=== PATIENT | male | born 1985 ===

== ENCOUNTER → 2025-10-05 18:54 | Outpatient (CLI) | payer BC, SELFPAY ==
--- NOTE | 2025-10-05 20:21 | DI.RAD_ITS ---
Exam(s) XR LUMBAR SPINE COMPLETE EXAM: XR LUMBAR SPINE COMPLETE CLINICAL HISTORY: Strain of Lumbar region ICD-10: S39.012A. TECHNIQUE: 2D digital imaging was performed. COMPARISON: No exams were available for comparison FINDINGS: Five views No evidence of fracture, listhesis, nor pars interarticularis defects. There is minimal disc space narrowing at L5-S1 level. Other disc spaces exhibit normal height. Bone density normal. No osseous lesions. Facet joints appear unremarkable. Bone density is normal and there are no osseous lesions. There is no scoliosis. Visualized sacroiliac joints appear unremarkable. IMPRESSION: Minimal disc space narrowing L5-S1 level. No other significant radiograph findings in the lumbosacral spine. DATA REPOSITORY: RADIATION DOSE DELIVERED:
--- NOTE | 2025-10-05 20:36 | DI.VRAD_ITS ---
PROCEDURE INFORMATION: Exam: XR Lumbosacral Spine Exam date and time: 10/05/2025 8:07 PM Age: 40 years old Clinical indication: Injury or trauma; Other: Strain picking up something; Work related; Sprain or strain, lumbar ligaments; Injury date: 10/05/25; Strain of lumbar region TECHNIQUE: Imaging protocol: Radiologic exam of the lumbosacral spine. Views: 4 or 5 views. COMPARISON: No relevant prior studies available. FINDINGS: Bones/joints: There are 5 [id number] lumbar vertebral bodies. No acute fracture or malalignment is seen. Disc heights appear preserved throughout. Soft tissues: No gross focal soft tissue abnormality is demonstrated. IMPRESSION: No acute fracture or malalignment seen in the lumbar spine. Dictated and Authenticated by: Gómez Lima MD. Orderin Diya Agosto MD
== END ==
LOC: NCHCN 18:54 → DI 19:13
PROVIDERS: Visit Provider Physician Assistant Medical
DX: S39.012A Strain of muscle, fascia and tendon of lower back, initial encounter (principal); M51.370 Other intervertebral disc degeneration, lumbosacral region with discogenic back pain only
CPT/HCPCS: 72110